=== PATIENT | female | born 1965 | race Caucasian/White ===

== ENCOUNTER 2016-09-16 18:34 | Emergency (ER) | payer MEDICARE, OTHER ==
--- NOTE | ~2016-09-16 | CR281 ---
[facility] A Service of [facility] & [facility] RADIOLOGY TEXT RESULTS PATIENT: ANDRÉS JOYNER LOCATION: [facility] : 67 UNIT #: [id number] AGE: [address]: Unique Hurtado APRN SEX: F ORDER DR: [id number] [facility] [address] [place], [place] [address] [id number] E MR#: [id number] Acc #: [id number] NAME: ANDRÉS JOYNER. : 1965 SEX: F STUDY DATE/TIME: 09/16/2016 21:28 UNIT: [facility] ROOM: STUDY DESCRIPTION: CR Wrist Min 3 View Lt Attending Physician: Unique Hurtado A.P.R.N. Ordering Physician: Unique Hurtado A.P.R.N. Primary Care Physician: Rayne White Aprn MEDICAL IMAGING REPORT This report is preliminary unless electronic signature is present EXAM Left wrist 3 views HISTORY Wrist pain after fall today. FINDINGS Wrist evaluation in multiple projections shows normal mineralization of the bony structures about the wrist and satisfactory articular relationship of the radius and ulna to the proximal carpal row and of the distal carpal segments to the metacarpal bases. There is no indication of fracture or dislocation, and no soft tissue radiopaque foreign body is present. No congenital defects are apparent. IMPRESSION Normal wrist. Dictated by... Jamison Bonilla M.D. THIS IS AN ELECTRONICALLY VERIFIED REPORT Jamison Bonilla M.D. at 09/19/2016 10:19 AM LEONOR/raffaele TD: 09/17/2016 05:56 JOB #: [id number] MEDICAL IMAGING REPORT Page 1 of 1 COPY
--- NOTE | ~2016-09-16 | CR20 ---
[facility] A Service of [facility] RADIOLOGY TEXT RESULTS PATIENT: ANDRÉS JOYNER LOCATION: [facility] : 67 UNIT #: [id number] AGE: [address]: Unique Hurtado APRN SEX: F ORDER DR: [id number] [facility] [address] [place], [place] [address] [id number] E MR#: [id number] Acc #: [id number] NAME: ANDRÉS JOYNER. : 1965 SEX: F STUDY DATE/TIME: 09/16/2016 21:31 UNIT: [facility] ROOM: STUDY DESCRIPTION: CR Ankle Min 3 Views Lt Attending Physician: Unique Hurtado A.P.R.N. Ordering Physician: Unique Hurtado A.P.R.N. Primary Care Physician: Rayne White Aprn MEDICAL IMAGING REPORT This report is preliminary unless electronic signature is present EXAM Three views of the left ankle. Date: 09/16/2016 HISTORY Left ankle pain today. Fell. COMPARISON Left ankle radiographs 10/15/2015 FINDINGS Chronic-appearing well-corticated calcifications are seen adjacent to the medial lateral malleoli, quite similar to the 10/15/15 examination. No acute fracture joint dislocation is seen. Prominent plantar calcaneal spur is redemonstrated. There is mild spurring at the dorsum of the midfoot. IMPRESSION 1. No acute right ankle findings 2. Chronic-appearing well-corticated calcifications are seen adjacent to the medial and lateral malleoli, unchanged from prior. 3. Mild soft tissue swelling. 4. Prominent plantar calcaneal spur. Dictated by... Angella Amaya M.D. THIS IS AN ELECTRONICALLY VERIFIED REPORT [facility] A Service [facility] RADIOLOGY TEXT RESULTS PATIENT: ANDRÉS JOYNER LOCATION: [facility] : 67 UNIT #: [id number] AGE: [address]: Unique Hurtado APRN SEX: F ORDER DR: Angella Amaya M.D. at 09/20/2016 8:47 AM DARYL/ken TD: 09/17/2016 03:21 JOB #: [id number] MEDICAL IMAGING REPORT Page 1 of 1 COPY
--- NOTE | ~2016-09-16 | CR172 ---
[facility] A Service of [facility] & [facility] RADIOLOGY TEXT RESULTS PATIENT: ANDRÉS JOYNER LOCATION: [place] : 67 UNIT #: [id number] AGE: [address]: Unique Hurtado APRN SEX: F ORDER DR: [id number] [facility] [address]. [place], [place] [address] [id number] E MR#: [id number] Acc #: [id number] NAME: ANDRÉS JOYNER. : 1965 SEX: F STUDY DATE/TIME: 09/16/2016 21:29 UNIT: [facility] ROOM: STUDY DESCRIPTION: CR Knee 3 Views Lt Attending Physician: Unique Hurtado A.P.R.N. Ordering Physician: Unique Hurtado A.P.R.N. Primary Care Physician: Rayne White Aprn MEDICAL IMAGING REPORT This report is preliminary unless electronic signature is present EXAM Left knee 3 views HISTORY Knee pain after fall today. FINDINGS 3 views of left knee demonstrate normal bone alignment. No fracture or effusion. Minimal degenerative changes in the patellofemoral joint. IMPRESSION No acute findings. Minimal degenerative changes in the patellofemoral joint. Dictated by... Jamison Bonilla M.D. THIS IS AN ELECTRONICALLY VERIFIED REPORT Jamison Bonilla M.D. at 09/19/2016 10:20 AM DFL/raffaele TD: 09/17/2016 06:09 JOB #: [id number] MEDICAL IMAGING REPORT Page 1 of 1 COPY
[~2016-09-16 18:34] MED LIST: ALBUTEROL INHALER; ALBUTEROL17 GM; ALBUTEROL17 GM INH; ALL DAY ALLERGY10 M3 PO; AUGMENTIN875 M1 PO; AZITHROMYCIN250 MG PO; BACLOFEN20 M1 PO; BACLOFEN20 MG PO; BENZONATATE PO; BUDEPRION SR100 MG PO; BUSPIRONE HCL10 M1 PO; BUSPIRONE HCL10 M2 PO; CELEXA; CELEXA PO; CLARITAN; DARVOCET-N 1001 TA1 DOB; DOXYCYCLINE150 MG PO; FLONASE; FLONASE 0.05% N16 G1; FLONASE16 GM; GLIMEPIRIDE2 MG PO; GLUCOPHAGE XR500 MG PO; HYDROCODONE-CHLO5 ML PO; IBUPROFEN; IBUPROFEN PO; IBUPROFEN800 MG PO; KLONOPIN1 MG PO; LINZESS145 MCG PO; LISINOPRIL-HCTZ1 T19 PO; LODINE400 M1 PO; LORCET PLUS 7.1 EACH PO; LORTAB 5-325 M1 EACH PO; MEDROL4 MG/DOSE- PO; MOBIC; MOTRIN600 MG PO; MULTI-DAY VITAM1 TAB; MULTI-DAY VITAM1 TAB PO; NAPROXEN250 MG; NEURONTIN100 MG PO; NEURONTIN300 MG PO; NEURONTIN800 MG PO; NICOTINE TRANSDE7 MG EXT; NYSTATIN-TRIAMC15 G1 TP; PAXIL PO; PHENERGAN DM1 ML DOB; PHENERGAN PO; PHENERGAN W/CO120 ML PO; PHENERGAN25 M1 PO; PREDNISONE PO; PREDNISONE10 MG PO; RANITIDINE HCL150 M1; SINEX; SPIRIVA18 MCG INH; SYMBICORT INH; TRAMADOL HCL50 M2 PO; TUSSIONEX PENN473 ML PO; VIBRAMYCIN100 M1 DOB; VICODIN PO; WALMART PHARMACY; WELLBUTRIN100 MG PO; ZANTAC PO; ZANTAC150 MG; ZANTAC150 MG PO; ZESTRIL10 M1 PO; ZITHROMAX PO; ZOCOR; ZOCOR PO; ZOFRAN ODT4 MG PO; ZYRTEC; ZYRTEC10 M2 PO
== END 2016-09-16 22:20 | disposition home or self-care (01) ==
LOC: CED 18:34 → CFTX 18:34
DX: S63.502A Unspecified sprain of left wrist, initial encounter (principal); S93.402A Sprain of unspecified ligament of left ankle, initial encounter; S80.02XA Contusion of left knee, initial encounter; I10 Essential (primary) hypertension; E11.9 Type 2 diabetes mellitus without complications; J45.909 Unspecified asthma, uncomplicated; F32.9 Major depressive disorder, single episode, unspecified; M54.9 Dorsalgia, unspecified; G89.29 Other chronic pain; W10.9XXA Fall (on) (from) unspecified stairs and steps, initial encounter; Y92.009 Unspecified place in unspecified non-institutional (private) residence as the place of occurrence of the external cause; Z88.5 Allergy status to narcotic agent
CPT/HCPCS: 29125; 29405; 29515; 29530; 73110; 73562; 73610; 99284

== ENCOUNTER 2016-11-19 02:05 | Emergency (ER) | payer MEDICARE ==
[~2016-11-19] VITALS: Ht 162.6 cm; Wt 154.2 kg
--- NOTE | ~2016-11-19 | CR72 ---
[facility] A Service of [facility] RADIOLOGY TEXT RESULTS PATIENT: ANDRÉS JOYNER LOCATION: [facility] : 67 UNIT #: [id number] AGE: [address]: Unique Hurtado APRN SEX: F ORDER DR: [id number] [facility] [address] [place], [place] [address] [id number] E MR#: [id number] Acc #: [id number] NAME: ANDRÉS JOYNER. : 1965 SEX: F STUDY DATE/TIME: 11/19/2016 2:50 UNIT: [facility] ROOM: STUDY DESCRIPTION: CR Chest Single View Portable Attending Physician: Unique Hurtado A.P.R.N. Ordering Physician: Unique Hurtado A.P.R.N. Primary Care Physician: Rayne White Aprn MEDICAL IMAGING REPORT This report is preliminary unless electronic signature is present EXAM AP portable chest. DATE OF EXAM 11/19/2016 HISTORY Cough and shortness of breath for 3 days. COMPARISON PA and lateral chest, 08/29/2015. FINDINGS A single AP view of the chest shows both lungs to be clear. The heart is normal in size. The mediastinal contour is normal. No significant bone abnormalities are seen. IMPRESSION Normal AP portable chest. Dictated by... Angella Amaya M.D. THIS IS AN ELECTRONICALLY VERIFIED REPORT Angella Amaya M.D. at 11/19/2016 9:41 PM Allan TD: 11/19/2016 17:54 JOB #: [id number] MEDICAL IMAGING REPORT Page 1 of 1 COPY
== END 2016-11-19 04:58 | disposition home or self-care (01) ==
LOC: CED 02:05
DX: J06.9 Acute upper respiratory infection, unspecified (principal); K21.9 Gastro-esophageal reflux disease without esophagitis; I10 Essential (primary) hypertension; J45.909 Unspecified asthma, uncomplicated; F32.9 Major depressive disorder, single episode, unspecified; Z88.5 Allergy status to narcotic agent
CPT/HCPCS: 71010; 82947; 87651; 94640; 99284